=== PATIENT | male | born 1985 | race Caucasian/White ===

== ENCOUNTER 2023-11-26 14:08 | Outpatient (AMB) | payer BC, SELFPAY ==
--- NOTE | 2023-11-26 14:28 | AM.OFFWIN_ITS ---
Intake Vital Signs 11/26/23 14:36 Height 5 ft 11 in Weight 198 lb BMI 27.6 BP 140/90 H Blood Pressure Location Lt brachial Position Sitting Pulse 93 Pulse Source Pulse Oximeter Temp 97.7 F Temp Source Temporal Artery Scan Pulse Oximetry (%) 97 Oxygen Delivery Method Room Air Intake Visit Reasons: [employer]PRES[employer]IVE sinus pressure head/earache sore throat Intake Note: pt is here sinus pressure head earache sore throat started 2 weeks ago Patient Tobacco Use Status: Never used Tobacco Allergies No Known Allergies Allergy (Verified 11/26/23 14:28) Do you need a note to return to daycare/school/sports/work: No HPI HPI Comments History of Present Illness Details 37 y/o male patient who presents to walk in clinic with c/o URI symptoms. Reports symptoms started 2 weeks ago. Reports sinus pressure and nasal congestion. PFSH Social History Patient Tobacco Use Status: Never used Tobacco Review of Systems Const All systems reviewed & are unremarkable except as noted in HPI and below Physical Exam Vital Signs: Last Vital Signs Temp 97.7 F 11/26/23 14:36 Pulse 93 11/26/23 14:36 BP 140/90 H 11/26/23 14:36 Pulse Ox 97 11/26/23 14:36 Oxygen Delivery Method Room Air 11/26/23 14:36 BMI result Body Mass Index 27.6 Const General: comfortable and no acute distress HEENT Head: Yes normocephalic Ears: external ears normal and TM's normal bilaterally General nose exam: Abnormal mucous membranes and turbinates present boggy and erythematous and Nasal discharge present Face and sinus: Yes sinus tenderness Mouth: Abnormal oral and palatal mucosa present erythematous; no white patches and lesions Throat: Yes postnasal drainage Resp Effort & Inspection: normal respiratory effort Auscultation: clear to auscultation bilaterally Cardio Rate: regular rate Rhythm: regular rhythm Results AMB Rapid Strep AMB Rapid Strep Negative Last Edit by Kash Jeter CMA on 11/26/23 14 :48 Results Reviewed Results Reviewed: Laboratory Last Values Strep Scn Rapid Clinic Negative 11/26/23 14:47 Assessment & Plan Assessment & Plan (1) Upper respiratory infection: Code(s): J06.9 - Acute upper respiratory infection, unspecified Qualifiers: Pharyngitis/tonsillitis etiology: other specified organisms URI type: acute pharyngitis Qualified Code(s): J02.8 - Acute pharyngitis due to other specified organisms Plan: - Rest - Warm fluids with honey - OTC cold remedies. Orders: Orders AMB Rapid Strep Screen Today Z13.9 - Encounter for screening, unspecified Medications: New amoxicillin 500 mg PO BID 10 days 20 tabs 0RF J02.8 - Acute pharyngitis due to other specified organisms acetaminophen 1,000 mg (2 x 500 mg) PO Q6H PRN 30 caps 0RF fever R51.9 - Headache, unspecified Coding Level of Care Code Est Pt Level 3 (59404) Diagnoses Acute pharyngitis due to other specified organisms J02.8 Pharyngitis/tonsillitis etiology: other specified organisms URI type: acute pharyngitis Time Spent (min) 15
[2023-11-26 14:36] VITALS: BP 140/90; PULSE 93; TEMP 36.5; O2SAT 97; BMI 27.6
== END 2023-11-26 15:56 | disposition home or self-care (01) ==
PROVIDERS: Visit Provider Nurse Practitioner Family
DX: J06.9 Acute upper respiratory infection, unspecified (principal); J02.9 Acute pharyngitis, unspecified
CPT/HCPCS: 87880; 99213

== ENCOUNTER 2025-05-24 12:44 | Outpatient (REF) | payer BC, SELFPAY ==
--- OUTSIDE RECORDS SUMMARY | 2025-05-24 13:20 | XMS_ITS ---
Author Name [facility] Organization Unknown Encounters Encounter Type Encounter Reason Primary Diagnosis Location Date Ambulatory [facility] 08/12/2023 Ambulatory [facility] 07/27/2023 Ambulatory [facility] 04/04/2023 Ambulatory [facility] 04/01/2023 Ambulatory [facility] 03/06/2023 Ambulatory [facility] 03/06/2023 Ambulatory [facility] 02/11/2023
--- OUTSIDE RECORDS SUMMARY | 2025-05-24 13:20 | XMS_ITS | Clinical Summary ---
Author Organization [facility] Address [address] [place] [address] Care Team Providers Care Activity Therapist Name Role Phone Unknown, Md Primary Care Provider Unavailabl e Allergies Active Allergy Reactions Criticality Noted Date Comments Animal Dander 11/17/2017 Seasonal 11/17/2017 Medications Medication Sig Dispensed Refills Start Date End Date Status Fluticasone Propionate (ALLERGY SPRAY 24 HOUR NA) spray or apply inside Nose. 0 Active HYDROcodone-acetamino phen (VICODIN) 5-300 MG per tablet Take 1-2 tabs po every 4-6 hours prn 20 tablet 0 11/20/2017 Active aspirin 81 MG tablet Take 1 tablet (81 mg total) by mouth daily. 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/19 18 Social History Tobacco Use Types Packs/Day Years Used Date Smoking Tobacco: Never Smokeless Tobacco: Never Alcohol Use Standard Drinks/Week Comments No 0 (1 standard drink = 0.6 oz pur e alcohol) Sex and Gender Information Value Date Recorded Sex Assigned at Not on file Gender Identity Not on file Sexual Orientation Not on file Job Start Date Occupation Industry Not on file Not on file Not on file Last Filed Vital Signs Vital Sign Reading Time Taken Comments Blood Pressure - - Pulse 63 11/17/2017 11:01 AM EST Temperature - - Respiratory Rate - - Oxygen Saturation - - Inhaled Oxygen Concentration - - Weight 77.1 kg (170 lb) 11/17/2017 11:01 AM EST Height 180.3 cm (5' 11 ) 11/17/2017 11:01 AM EST Body Mass Index 23.71 11/17/2017 11:01 AM EST Plan of Treatment Health Maintenance Due Date Last Done Comments Hepatitis B Vaccines (1 of 3 - 3-dose series) 1985 Hepatitis C Screening 1985 COVID-19 Vaccine (#1) 06/30/1986 Depression Screening 1997 Preventative Health Evaluation 12/29/2003 Influenza Vaccine (#1) 2025 08/09/2018 DTap / Tdap / Td (2 - Td or Tdap) 05/26/2027 05/26/2017, 06/01/1992 Pneumococcal Vaccine Aged Out No long er eligible based on patient's age to complete this topic RSV Ped < 20 months Aged Out No longe r eligible based on patient's age to complete this topic Care Teams Activity Therapist Relationship Specialty Start Date End Date Unknown, PCP - General 05/04/23
== END 2025-05-24 12:45 | disposition home or self-care (01) ==
LOC: HO.BBR 12:44
PROVIDERS: Visit Provider General Practice
DX: D75.1 Secondary polycythemia (principal)
CPT/HCPCS: 85018; 99195